=== PATIENT | male | born 1975 | race Caucasian/White ===

== ENCOUNTER 2016-10-15 10:15 | Emergency (ER) | payer BC ==
[~2016-10-15] VITALS: Ht 172.7 cm; Wt 102.0 kg
[2016-10-15 10:20] VITALS: BP 151/84; PULSE 84; RESP 16; TEMP 97.9; O2SAT 97
[2016-10-15] MEDS ORDERED: METF1000 PO (10:59)
[2016-10-15] MEDS ORDERED: SODIUM CHLORIDE 0.9% FLUSH 10 ML FLUSH IV FLUSH PRN (11:00)
[2016-10-15] MEDS ORDERED: LIDOCAINE VISCOUS 2% SOLN 15 ML UDC PO ONE (11:00)
[2016-10-15] MEDS ORDERED: ALUMINUM/MAGNESIUM/SIMETH 30 ML CUP PO ONE (11:00)
--- NOTE | 2016-10-15 11:11 | PD ---
HPI Chief Complaint: Numbness/Tingling Time Seen by Provider: 10:59 Travel History International Travel<30 days: No Contact w/Intl Traveler<30days: No Traveled to known affect area: No History of Present Illness HPI Patient presents with complaints of intermittent right sided numbness and tingling that lasts for approximately 15 minutes. Occurring over the last 3-4 weeks, daily. 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 States significant dietary in lifestyle modification since then and has lost approximately 60 pounds. He remains active. Past medical history for diabetes , well-controlled, last A1c 5.6. Denies tobacco use. States he has similar symptoms occasionally that occur in the left side as well. Denies any facial asymmetry or slurred speech. States he had an episode this morning however it is completely resolved now. Asymptomatic now. PFSH Past Medical History Diabetes: Yes (pre) Patient Takes Glucophage: No Diminished Hearing: No Tetanus Vaccination: Unknown Influenza Vaccination: No ?: Not Social History Alcohol Use: Yes (2X PER WK) Tobacco Use: No Substance Use: No Allergies-Medications (Allergen,Severity, Reaction): Coded Allergies: No Known Allergies (Verified , 10/13/14) Reported Meds & Prescriptions Reported Meds & Active Scripts Active Reported Metformin (Metformin HCl) 1,000 Mg Tab 1,000 Mg PO BIDPC With meals Review of Systems General / Constitutional: No: Fever Eyes: No: Visual changes HENT: No: Headaches Cardiovascular: No: Chest Pain or Discomfort Respiratory: No: Shortness of Breath Gastrointestinal: No: Abdominal Pain Genitourinary: No: Dysuria Musculoskeletal: No: Pain Skin: No Rash Neurologic: No: Weakness Psychiatric: No: Depression Endocrine: No: Polydipsia Hematologic/Lymphatic: No: Easy Bruising Physical Exam Narrative GENERAL: [-] SKIN: Focused skin assessment warm/dry. HEAD: Atraumatic. Normocephalic. EYES: Pupils equal and round. No scleral icterus. No injection or drainage. ENT: No nasal bleeding or discharge. Mucous membranes pink and moist. NECK: Trachea midline. No JVD. CARDIOVASCULAR: Regular rate and rhythm. No murmur appreciated. RESPIRATORY: No accessory muscle use. Clear to auscultation. Breath sounds equal bilaterally. GASTROINTESTINAL: Abdomen soft, non-tender, nondistended. Hepatic and splenic margins not palpable. MUSCULOSKELETAL: No obvious deformities. No clubbing. No cyanosis. No edema. NEUROLOGICAL: Awake and alert. No obvious cranial nerve deficits. Motor grossly within normal limits. Normal speech. PSYCHIATRIC: Appropriate mood and affect; insight and judgment normal. Data Data Last Documented VS Vital Signs Date Time Temp Pulse Resp B/P Pulse Ox O2 Delivery O2 Flow Rate FiO2 10/15/16 12:30 80 16 125/73 96 10/15/16 10:20 97.9 Orders Sodium Chloride 0.9% Flush (Ns Flush) (10/15/16 11:00) Al-Mag Hy-Si 40-40-4 Mg/Ml Liq (Mag-Al P (10/15/16 11:00) Lidocaine 2% Viscous (Xylocaine 2% Visco (10/15/16 11:00) Complete Blood Count With Diff (10/15/16 11:04) Comprehensive Metabolic Panel (10/15/16 11:04) Ct Brain W/O Iv Contrast(Rout) (10/15/16 11:04) Ecg Monitoring (10/15/16 11:04) Iv Access Insert/Monitor (10/15/16 11:04) Oximetry (10/15/16 11:04) Blood Glucose (10/15/16 11:04) Aspirin (Aspirin) (10/15/16 11:15) Sodium Chloride 0.9% Flush (Ns Flush) (10/15/16 11:15) Electrocardiogram (10/15/16 ) Labs Laboratory Tests Test 10/15/16 11:33 White Blood Count 10.8 TH/MM3 Red Blood Count 5.33 MIL/MM3 Hemoglobin 16.1 GM/DL Hematocrit 45.4 % Mean Corpuscular Volume 85.2 FL Mean Corpuscular Hemoglobin 30.1 PG Mean Corpuscular Hemoglobin 35.4 % Concent Red Cell Distribution Width 12.7 % Platelet Count 168 TH/MM3 Mean Platelet Volume 9.7 FL Neutrophils (%) (Auto) 71.9 % Lymphocytes (%) (Auto) 18.7 % Monocytes (%) (Auto) 6.7 % Eosinophils (%) (Auto) 2.0 % Basophils (%) (Auto) 0.7 % Neutrophils # (Auto) 7.8 TH/MM3 Lymphocytes # (Auto) 2.0 TH/MM3 Monocytes # (Auto) 0.7 TH/MM3 Eosinophils # (Auto) 0.2 TH/MM3 Basophils # (Auto) 0.1 TH/MM3 CBC Comment DIFF FINAL Differential Comment Sodium Level 138 MEQ/L Potassium Level 4.0 MEQ/L Chloride Level 106 MEQ/L Carbon Dioxide Level 23.4 MEQ/L Anion Gap 9 MEQ/L Blood Urea Nitrogen 15 MG/DL Creatinine 0.76 MG/DL Estimat Glomerular Filtration 112 ML/MIN Rate Random Glucose 176 MG/DL Calcium Level 8.6 MG/DL Total Bilirubin 0.4 MG/DL Aspartate Amino Transf 17 U/L (AST/SGOT) Alanine Aminotransferase 29 U/L (ALT/SGPT) Alkaline Phosphatase 72 U/L Total Protein 7.1 GM/DL Albumin 3.8 GM/DL MDM Medical Decision Making Medical Screen Exam Complete: Yes Emergency Medical Condition: Yes Differential Diagnosis Hypoglycemia, anxiety, TIA, CVA, multilevel degenerative disc disease Narrative Course Assessment and plan discussed with patient at bedside. EKG revealed sinus rhythm rate of 74. ABCD squared places patient at low risk. CT the brain reveals no acute intracranial process. Diagnosis Primary Impression: Numbness and tingling of right upper and lower extremity Patient Instructions: General Instructions Additional Instructions: Encouraged a daily aspirin. Encouraged to follow-up with his PCP Dr. Lei to assess further need of evaluation. Encouraged to return to emergency room with any onset of new symptoms. Med/Other Pt SpecificInfo: No Meds Exist/No RX given Disposition: 01 DISCHARGE HOME Condition: Good Roger Garcia MD Oct 15, 2016 11:10
[2016-10-15] MEDS ORDERED: ASPIRIN 325 MG TAB PO ONE (11:15)
[2016-10-15] MEDS ORDERED: SODIUM CHLORIDE 0.9% FLUSH 10 ML FLUSH IVF PRN (11:15)
[2016-10-15 11:47] LABS: AUTOMATED NEUTROPHIL # 7.8 TH/MM3 (1.8-7.7); BASOPHIL # 0.1 TH/MM3 (0-0.2); BASOPHIL % 0.7 % (0.0-2.0); EOSINOPHIL # 0.2 TH/MM3 (0-0.4); HEMATOCRIT 45.4 % (39.0-51.0); HEMO FLAGS DIFF FINAL; LYMPH % 18.7 % (9.0-44.0); MEAN CELL VOLUME 85.2 FL (80.0-100.0); MEAN CORPUSCULAR HEMOGLOBIN 30.1 PG (27.0-34.0); MEAN CORPUSCULAR HGB CONC 35.4 % (32.0-36.0); MONO % 6.7 % (0.0-8.0); NEUT % 71.9 % (16.0-70.0); PLATELET COUNT 168 TH/MM3 (150-450); RED BLOOD COUNT 5.33 MIL/MM3 (4.50-5.90); RED CELL DISTRIBUTION WIDTH 12.7 % (11.6-17.2); WHITE BLOOD COUNT 10.8 TH/MM3 (4.0-11.0)
[2016-10-15 11:51] LABS: CHLORIDE 106 MEQ/L (98-107); SODIUM (NA) 138 MEQ/L (136-145)
[2016-10-15 11:55] LABS: ANION GAP 9 MEQ/L (5-15); BICARBONATE 23.4 MEQ/L (21.0-32.0); BLOOD UREA NITROGEN 15 MG/DL (7-18)
[2016-10-15 11:58] LABS: ALT (GPT) 29 U/L (12-78); AST (GOT) 17 U/L (15-37); GLOMERULAR FILTRATION RATE 112 ML/MIN (>89)
[2016-10-15 11:59] LABS: TOTAL BILIRUBIN ADULT 0.4 MG/DL (0.2-1.0)
[2016-10-15 12:01] LABS: ALKALINE PHOSPHATASE 72 U/L (45-117)
[2016-10-15 12:30] VITALS: BP 125/73; O2SAT 96
--- NOTE | 2016-10-15 12:30 | RADRPT ---
EXAM DATE/TIME: 10/15/2016 12:09 [facility] COMPARISON: No previous studies available for comparison. INDICATIONS : Bilateral arm numbness. RADIATION DOSE: 64.06 CTDIvol (mGy) MEDICAL HISTORY : None SURGICAL HISTORY : None. ENCOUNTER: Initial ACUITY: 1 month PAIN SCALE: 0/10 LOCATION: cranial TECHNIQUE: Multiple contiguous axial images were obtained of the head. Using automated exposure control and adj ustment of the mA and/or kV according to patient size, radiation dose was kept as low as reasonably a chievable to obtain optimal diagnostic quality images. DICOM format image data is available electro nically for review and comparison. FINDINGS: CEREBRUM: The ventricles are normal for age. No evidence of midline shift, mass lesion, hemorrhage or acute in farction. No extra-axial fluid collections are seen. POSTERIOR FOSSA: The cerebellum and brainstem are intact. The 4th ventricle is midline. The cerebellopontine angle i s unremarkable. EXTRACRANIAL: The visualized portion of the orbits is intact. SKULL: The calvaria is intact. No evidence of skull fracture. CONCLUSION: No acute disease. Gadiel Carroll MD on October 15, 2016 at 12:28 Board Certified Radiologist. This report was verified electronically.
[2016-10-15 13:04] VITALS: O2SAT 96
--- NOTE | 2016-10-16 20:07 | EKG ---
Date Performed: 10/15/2016 Time Performed: 11:22:29 PTAGE: 41 years EKG: Sinus rhythm Compared to prior tracing no significant change NORMAL ECG PREVIOUS TRACING : 10/13/2014 12.12 DOCTOR: Varinder Liz Interpretating Date/Time 10/16/2016 20:06:56
== END 2016-10-15 13:04 | disposition home or self-care (01) ==
LOC: PHED 10:15
DX: R20.0 Anesthesia of skin (principal); R20.2 Paresthesia of skin; E11.9 Type 2 diabetes mellitus without complications; Z79.84 Long term (current) use of oral hypoglycemic drugs
CPT/HCPCS: 70450; 80053; 85025; 93005; 99285